=== PATIENT | male | born 1985 | race Caucasian/White ===

== ENCOUNTER 2018-07-23 04:53 | Emergency (ER) | payer OTHER ==
[2018-07-23] MEDS ORDERED: ALBUTEROL SO4 2.5/IPRATROPIUM 0.5 INH SOL 3 ML VIAL.NEB. NEB ONE ×2 (05:26→06:37)
[2018-07-23 05:31] VITALS: BP 130/77; TEMP 98.1; BMI 35.2
--- NOTE | 2018-07-23 05:33 | PDOC ---
Attending Attestation - Resident Resident Name: Carroll Grewal - ED Attending Attestation I have performed the following: I have examined & evaluated the patient, The case was reviewed & discussed with the resident, I agree w/resident's findings & plan - HPI HPI: 07/23/18 05:30 32-year-old male with shortness of breath on and off for 2 days, patient denies chest pain. Symptoms have been fluctuating in intensity. Patient does admit to smoking 1 pack of menthol cigarettes daily. - Physicial Exam PE: 07/23/18 05:33 Agree with resident's exam - Medical Decision Making 07/23/18 05:33 32-year-old male with shortness of breath and heavy tobacco use Labs, chest x-ray and EKG Duo nebs, with likely discharged home
--- NOTE | 2018-07-23 05:41 | PDOC ---
History of Present Illness - General Chief Complaint: Shortness of Breath Stated Complaint: SHORTNESS OF BREATH Time Seen by Provider: 07/23/18 04:59 History Source: Patient Exam Limitations: No Limitations - History of Present Illness Initial Comments: 07/23/18 05:41 32M with PMH of asthma who presents to the ER with complaints of SOB. The patient states that he woke up in the middle of the night feeling anxious and short of breath. He also admits to palpitations. He denies CP, lightheadedness, and syncope. He does not believe that this feels like an asthma attack. Pt denies hx of recent travel, hx of cancer, hx of DVT/PE, hx of recent surgery. Past History - Past Medical History Allergies/Adverse Reactions: Allergies Allergy/AdvReac Type Severity Reaction Status Date / Time No Known Allergies Allergy Verified 07/23/18 05:32 Home Medications: Ambulatory Orders NK [No Known Home Medication] 07/23/18 - Suicide/Smoking/Psychosocial Hx Smoking History: Current every day smoker Have you smoked in the past 12 months: Yes Information on smoking cessation initiated: No Hx Alcohol Use: Yes (Social) Drug/Substance Use Hx: No Review of Systems - Review of Systems Able to Perform ROS?: Yes Comments:: 07/23/18 05:46 GENERAL/CONSTITUTIONAL: No fever or chills. No weakness. HEAD, EYES, EARS, NOSE AND THROAT: No change in vision. No ear pain or discharge. No sore throat. CARDIOVASCULAR: + for palpitations. No chest pain, or lightheadedness. RESPIRATORY: + for SOB. No cough, wheezing, or hemoptysis. GASTROINTESTINAL: No nausea, vomiting, diarrhea, constipation, or abdominal pain. GENITOURINARY: No dysuria, frequency, hematuria, or change in urination. MUSCULOSKELETAL: No joint or muscle swelling or pain. No neck or back pain. SKIN: No rash or lesions. NEUROLOGIC: No headache, numbness, tingling, focal weakness, loss of consciousness, or change in strength/sensation. Is the patient limited Maltese proficient: No *Physical Exam - Vital Signs Last Vital Signs Temp Pulse Resp BP Pulse Ox 98.1 F 82 22 H 130/77 100 07/23/18 04:53 07/23/18 04:53 07/23/18 04:53 07/23/18 04:53 07/23/18 04:53 - Physical Exam Comments: 07/23/18 05:56 GENERAL: Well developed, well nourished. Awake and alert. No acute distress. HEENT: Normocephalic, atraumatic. Hearing grossly normal. Moist mucous membranes. PERRLA, EOMI. No conjunctival pallor. Sclera are non-icteric. NECK: Supple. Full ROM. No JVD. CARDIOVASCULAR: Regular rate and rhythm. No murmurs, rubs, or gallops. Distal pulses are 2+ and symmetric. PULMONARY: No evidence of respiratory distress. Mild expiratory wheezing in R LL. ABDOMINAL: Soft. Non-tender. Non-distended. No rebound or guarding. GENITOURINARY: No CVA tenderness bilaterally. MUSCULOSKELETAL: Normal range of motion at all joints. No bony deformities or tenderness. EXTREMITIES: No cyanosis. No clubbing. No edema. No calf tenderness or swelling. SKIN: Warm and dry. Normal capillary refill. No rashes. No jaundice. NEUROLOGICAL: Alert, awake, appropriate. Cranial nerves 2-12 grossly intact. Normal speech. Gait is normal without ataxia. PSYCHIATRIC: Cooperative but anxious appearing. Good eye contact. Appropriate mood and affect. Heart Score/ECG Review #1 ECG reviewed & interpreted by me at: 05:56 General ECG Interpretation: Sinus Rhythm, Normal Rate, Normal Intervals, No acute ischemic changes Compared to previous ECG there are: Previous ECG unavail ED Treatment Course - LABORATORY CBC & Chemistry Diagram: 07/23/18 05:35 07/23/18 05:35 - RADIOLOGY Radiology Studies Ordered: Category Date Time Status CHEST PA & LAT [RAD] Stat Radiology 07/23/18 05:17 Ordered Medical Decision Making - Medical Decision Making 07/23/18 05:59 32M with a PMH of asthma who presents with SOB and palpitations concerning for anxiety, asthma exacerbation. Low likelihood for PE. Pt PERCs out. 07/23/18 07:24 Pt signed out to Dr[address] Ibarra. *DC/Admit/Observation/Transfer Diagnosis at time of Disposition: Shortness of breath - Discharge Dispostion Disposition: HOME Condition at time of disposition: Good - Referrals - Patient Instructions Printed Discharge Instructions: DI for Shortness of Breath Additional Instructions: Please return to the ED if you have any new, worsening or concerning symptoms, especially increasing shortness of breath, chest pain, and fever. Please follow up with Dr Guadalupe this week. - Post Discharge Activity Forms/Work/School Notes: Back to Work
[2018-07-23 05:58] LABS: BASO % 0.9 % (0-2.0); EOS % 3.8 % (0-4.5); HEMATOCRIT 46.5 % (35.4-49); HEMOGLOBIN 15.9 GM/dL (11.7-16.9); LYMPH % 28.2 % (8-40); MCH 27.6 pg (25.7-33.7); MCHC 34.1 g/dl (32.0-35.9); MEAN CELL VOLUME 80.8 fl (80-96); MEAN PLT VOLUME 8.8 fl (7.5-11.1); MONO % 5.5 % (3.8-10.2); NEUT % 61.6 % (42.8-82.8); PLATELET COUNT 312 K/MM3 (134-434); RBC 5.75 M/mm3 (4.00-5.60); RDW 14.7 % (11.9-15.9); WHITE BLOOD COUNT 8.9 K/mm3 (4.0-10.0)
[2018-07-23 06:12] LABS: INR 0.96 (0.83-1.09); PROTHROMBIN TIME (PATIENT) 11.3 SEC (9.7-13.0)
[2018-07-23 06:55] VITALS: PULSE 87
[2018-07-23 06:55] LABS: ALBUMIN 3.9 g/dl (3.4-5.0); ALK PHOS 136 U/L (45-117); ANION GAP 3 MMOL/L (8-16); BILIRUBIN,TOTAL 0.4 mg/dL (0.2-1); BLOOD UREA NITROGEN 11 mg/dL (7-18); CALCIUM 8.3 mg/dL (8.5-10.1); CHLORIDE 108 mmol/L (98-107); CO2 28 mmol/L (21-32); CREATININE 1.1 mg/dL (0.55-1.3); GLUCOSE,RANDOM 103 mg/dL (74-106); POTASSIUM 4.2 mmol/L (3.5-5.1); SGOT/AST 44 U/L (15-37); SGPT/ALT 70 U/L (13-61); SODIUM 139 mmol/L (136-145); TOT PROT 7.5 g/dl (6.4-8.2)
--- NOTE | 2018-07-23 08:14 | PDOC ---
*Physical Exam - Vital Signs Last Vital Signs Temp Pulse Resp BP Pulse Ox 98.1 F 87 22 H 130/77 100 07/23/18 04:53 07/23/18 06:47 07/23/18 04:53 07/23/18 04:53 07/23/18 06:47 ED Treatment Course - LABORATORY CBC & Chemistry Diagram: 07/23/18 05:35 07/23/18 05:35 - ADDITIONAL ORDERS Additional order review: Laboratory Results 07/23/18 07/23/18 07/23/18 05:35 05:35 05:18 PT with INR 11.30 INR 0.96 D-Dimer < 215 Sodium 139 Potassium 4.2 Chloride 108 H Carbon Dioxide 28 Anion Gap 3 L BUN 11 Creatinine 1.1 Est GFR (CKD-EPI)AfAm 103.85 Est GFR (CKD-EPI)NonAf 89.61 Random Glucose 103 Calcium 8.3 L Total Bilirubin 0.4 AST 44 H ALT 70 H Alkaline Phosphatase 136 H Creatine Kinase 618 H Creatine Kinase Index 0.4 CK-MB (CK-2) 3.0 Troponin I < 0.02 Total Protein 7.5 Albumin 3.9 TSH 1.83 07/23/18 05:35 RBC 5.75 H MCV 80.8 MCHC 34.1 RDW 14.7 MPV 8.8 Neutrophils % 61.6 Lymphocytes % 28.2 Monocytes % 5.5 Eosinophils % 3.8 Basophils % 0.9 - Medications Given in the ED: ED Medications Discontinued Medications Generic Name Dose Route Start Last Admin Trade Name Freq PRN Reason Stop Dose Admin Albuterol/Ipratropium 2 amp 07/23/18 05:26 07/23/18 06:43 Duoneb - NEB 07/23/18 05:27 2 amp ONCE ONE Administration Medical Decision Making - Medical Decision Making 07/23/18 08:[address] Grewal. Patient is 32M here today with shortness of breath. Lungs were clear on initial exam. D-dimer negative. Trop normal. EKG reassuring. Pending CXR and likely discharge. CXR clear. Patient reassessed, symptoms have resolved, lungs clear. Has inhaler at home and Anayeli for PCP. Will discharge home with return precautions and instructions to follow up. *DC/Admit/Observation/Transfer Diagnosis at time of Disposition: Shortness of breath - Discharge Dispostion Disposition: HOME Condition at time of disposition: Good Decision to Admit order: No - Referrals - Patient Instructions Printed Discharge Instructions: DI for Shortness of Breath Additional Instructions: Please return to the ED if you have any new, worsening or concerning symptoms, especially increasing shortness of breath, chest pain, and fever. Please follow up with Dr Guadalupe this week. - Post Discharge Activity Forms/Work/School Notes: Back to Work
--- NOTE | 2018-07-23 17:15 | EKG ---
Test Reason : Blood Pressure : / mmHG Vent. Rate : 087 BPM Atrial Rate : 087 BPM P-R Int : 154 ms QRS Dur : 082 ms QT Int : 344 ms P-R-T Axes : 041 006 007 degrees QTc Int : 413 ms NORMAL SINUS RHYTHM INFERIOR INFARCT , AGE UNDETERMINED ABNORMAL ECG NO PREVIOUS ECGS AVAILABLE Confirmed by STACY CUELLAR, MONIQUE ([id number]) on 07/23/2018 5:14:49 PM Referred By: Juan ARMIJO Confirmed By:MONIQUE KUMAR MD
== END 2018-07-23 09:03 | disposition home or self-care (01) ==
LOC: JER 04:53
PROC: 3E0F7GC Introduction of Other Therapeutic Substance into Respiratory Tract, Via Natural or Artificial Opening (ICD-10-PCS; principal; 2018-07-23)
DX: R06.02 Shortness of breath (principal); F17.210 Nicotine dependence, cigarettes, uncomplicated
CPT/HCPCS: 36415; 71046-TC-FY; 80053; 82550; 82553; 84443; 84484; 85025; 85379; 85610; 93005; 93010; 99284-25

== ENCOUNTER 2018-09-21 22:40 | Emergency (ER) | payer OTHER ==
[2018-09-21 22:49] VITALS: BP 128/67; PULSE 87; TEMP 98.4; BMI 35.1
--- NOTE | 2018-09-22 00:32 | PDOC ---
History of Present Illness - General Chief Complaint: Shortness of Breath Stated Complaint: SOB/PALPITATIONS Time Seen by Provider: 09/22/18 00:32 - History of Present Illness Initial Comments: 09/22/18 01:15 The patient is a 32 year old male with a history of asthma who presents for evaluation of SOB and chest palpitations. The patient states that he has been experiencing a 2 day history of shortness of breath and associated chest palpitations and chest tightness that has been persistent prompting her presentation to the ED for further evaluation. He denies any exacerbating or relieving factors and otherwise denies fevers, chills, cough, nausea, vomiting, abdominal pain, or changes with urination or bowel movements. Past History - Past Medical History Allergies/Adverse Reactions: Allergies Allergy/AdvReac Type Severity Reaction Status Date / Time No Known Allergies Allergy Verified 07/23/18 05:32 Home Medications: Ambulatory Orders predniSONE [Deltasone -] 40 mg PO DAILY #10 tablet 09/22/18 Asthma: Yes COPD: No - Suicide/Smoking/Psychosocial Hx Smoking History: Unknown if ever smoked Have you smoked in the past 12 months: Yes Hx Alcohol Use: Yes (Social) Drug/Substance Use Hx: No Review of Systems - Review of Systems Comments:: 09/22/18 01:17 Constitutional: No fevers, chills, fatigue, malaise HEENT: No Rhinorrhea, nasal congestion, visual changes Cardiovascular: Palpitations. No chest pain, syncope, lightheadedness Respiratory: SOB. No Cough, Hemoptysis, Gastrointestinal: No Abdominal pain, Nausea, Vomiting, Constipation, Diarrhea, Melena Genitourinary: No Dysuria, Frequency, Urgency, Hesitancy, Hematuria, Flank pain Musculoskeletal: No Myalgia, arthralgia Skin: No rashes, itching, bruising, pallor Neurologic: No Headache, Dizziness, Numbness, Weakness, or Tingling Psychiatric: No Hallucinations. No SI or HI *Physical Exam - Vital Signs Last Vital Signs Temp Pulse Resp BP Pulse Ox 98.4 F 87 20 128/67 97 09/21/18 22:46 09/21/18 22:46 09/21/18 22:46 09/21/18 22:46 09/21/18 22:46 - Physical Exam Comments: 09/22/18 01:17 General Appearance: Nourished. No Apparent Distress HEENT: No Pharyngeal Erythema, Tonsillar Exudate, Tonsillar Erythema Neck: No Cervical Lymphadenopathy Respiratory/Chest: Lungs Clear, Normal Breath Sounds. End expiratory wheezing noted on exam. No Crackles, Rales, Rhonchi, Cardiovascular: Regular Rhythm, Regular Rate. No Murmur, Gallops, Rubs Gastrointestinal/Abdominal: Normal Bowel Sounds, Soft. No Guarding, Rebound, Tenderness Musculoskeletal: No CVA Tenderness Extremity: Normal Capillary Refill Integumentary: Normal Color, Dry, Warm Neurologic: Fully Oriented, Alert, Normal Mood/Affect, Normal Response, ED Treatment Course - LABORATORY CBC & Chemistry Diagram: 09/22/18 01:06 09/22/18 01:06 Medical Decision Making - Medical Decision Making 09/22/18 01:18 The patient is a 32 year old male with a history of asthma who presents for evaluation of SOB and chest palpitations. Differential includes but is not limited to: ACS, Asthma exacerbation, Arrhythmia, Infectious, Metabolic Derangement. Given the patient's history and physical exam, we will obtain a cbc, cmp, troponin, ekg, chest plain film, tsh to evaluate further. We will treat with duonebs, prednisone and continue to monitor and reassess while here in the ED. 09/22/18 06:06 CBC, cmp, troponin are unremarkable. Chest plain film is unremarkable. The patient was reassessed and reports improvement in their symptoms. We are comfortable discharging the patient home in stable condition on prednisone. Patient and family made aware of impression and plan, return precautions discussed including but not limited to worsening pain or symptoms, fevers, or signs of infection, chest pain, respiratory distress, inability to tolerate oral intake, dehydration, syncope, or neurologic changes. The patient is to follow up with PMD as recommended within 1 week, follow up information provided and the patient will call for an appointment. The patient is to take medications as instructed for duration of time and continue with supportive care , avoid triggers and precipitants. Patient is safe for outpatient follow-up. *DC/Admit/Observation/Transfer Diagnosis at time of Disposition: Shortness of breath - Discharge Dispostion Disposition: HOME Condition at time of disposition: Stable Decision to Admit order: No - Prescriptions Prescriptions: predniSONE [Deltasone -] 40 mg PO DAILY #10 tablet - Referrals Referrals: Anayeli,Ammir, MD [Primary Care Provider] - - Patient Instructions Printed Discharge Instructions: DI for Asthma -- Adult Additional Instructions: 1) Please follow-up with your primary care doctor in the next 2-3 days. Please call tomorrow to schedule a follow up appointment. If you cannot follow up with your doctor within 1 week please return to the Emergency Department for any urgent issues. 2) Your laboratory / imaging results were normal here in the ER. 3) If you have any worsening of symptoms or any other concerns please return to the ER immediately. Return if worsening symptoms including fevers, headache, vomiting, visual or hearing disturbances, abdominal pain, chest pain, shortness of breath, syncope, dehydration, inability to take things by mouth/vomiting, altered mental status, or worsening concerning symptoms. 4) Please continue taking your home medications as directed. Your medications on discharge include Prednisone. Side effects may include upset stomach, abdominal pain, vomiting, or diarrhea. Do not drink alcohol with your medications. - Post Discharge Activity Forms/Work/School Notes: Back to Work
--- NOTE | 2018-09-22 00:41 | PDOC ---
Attending Attestation - Resident Resident Name: Devonte Correa - ED Attending Attestation I have performed the following: I have examined & evaluated the patient, The case was reviewed & discussed with the resident, I agree w/resident's findings & plan - HPI HPI: 09/22/18 01:29 32-year-old male with chest tightness and palpitations. Patient has a history of asthma and has been using his nebulizer without relief. - Physicial Exam PE: 09/22/18 01:29 GENERAL: Awake, in no acute distress HEAD: No signs of trauma EYES: ENT:clear without exudates. Moist mucosa NECK: Normal ROM, LUNGS:. Normal work of breathing. end expiratory wheezing HEART: Regular rate and rhythm, ABDOMEN: Soft, nondistended CHEST WALL: BACK: No midline tenderness. EXTREMITIES:. No erythema, or tenderness NEUROLOGICAL: Alert, SKIN: Warm, Dry - Medical Decision Making 09/22/18 01:31 32-year-old male with asthma complaining of shortness of breath and palpitations Patient exhibits end expiratory wheezing on exam Plan for labs, EKG, chest x-ray as well as IV steroids and DuoNeb's Patient will likely be discharged home with a short course of oral steroids and recommended follow-up with his primary care physician He does have a nebulizer machine at home
[2018-09-22] MEDS ORDERED: predniSONE 20 MG TABLET (UD) PO ONE (01:10)
[2018-09-22] MEDS ORDERED: ALBUTEROL SO4 2.5/IPRATROPIUM 0.5 INH SOL 3 ML VIAL.NEB. NEB ONE ×2 (01:10→02:16)
[2018-09-22] MEDS ORDERED: methylPREDNISolone NA SUCC 125 MG/2 ML VIAL IVPUSH ONE (01:32)
[2018-09-22 01:57] LABS: ALBUMIN 4.1 g/dl (3.4-5.0); ALK PHOS 139 U/L (45-117); ANION GAP 5 MMOL/L (8-16); BILIRUBIN,TOTAL 0.4 mg/dL (0.2-1); BLOOD UREA NITROGEN 11.5 mg/dL (7-18); CALCIUM 9.3 mg/dL (8.5-10.1); CHLORIDE 108 mmol/L (98-107); CO2 28 mmol/L (21-32); CREATININE 1.2 mg/dL (0.55-1.3); GLUCOSE,RANDOM 81 mg/dL (74-106); POTASSIUM 4.5 mmol/L (3.5-5.1); SGOT/AST 27 U/L (15-37); SGPT/ALT 60 U/L (13-61); SODIUM 140 mmol/L (136-145); TOT PROT 7.7 g/dl (6.4-8.2)
[2018-09-22] MEDS ORDERED: methylPREDNISolone NA SUCC 125 MG/2 ML VIAL ONE (02:16)
[2018-09-22 02:22] LABS: BASO % 1.2 % (0-2.0); EOS % 3.2 % (0-4.5); HEMATOCRIT 43.9 % (35.4-49); HEMOGLOBIN 15.5 GM/dL (11.7-16.9); LYMPH % 28.2 % (8-40); MCH 28.4 pg (25.7-33.7); MCHC 35.3 g/dl (32.0-35.9); MEAN CELL VOLUME 80.4 fl (80-96); MEAN PLT VOLUME 8.7 fl (7.5-11.1); MONO % 5.3 % (3.8-10.2); NEUT % 62.1 % (42.8-82.8); PLATELET COUNT 330 K/MM3 (134-434); RBC 5.46 M/mm3 (4.00-5.60); RDW 14.6 % (11.9-15.9); WHITE BLOOD COUNT 10.8 K/mm3 (4.0-10.0)
--- NOTE | 2018-09-22 12:06 | EKG ---
Test Reason : Blood Pressure : / mmHG Vent. Rate : 081 BPM Atrial Rate : 081 BPM P-R Int : 144 ms QRS Dur : 080 ms QT Int : 356 ms P-R-T Axes : 042 033 026 degrees QTc Int : 413 ms NORMAL SINUS RHYTHM NORMAL ECG WHEN COMPARED WITH ECG OF 23-JUL-2018 05:09, CRITERIA FOR INFERIOR INFARCT ARE NO LONGER PRESENT Confirmed by Nhan Landry ([id number]) on 09/22/2018 12:06:01 PM Referred By: Confirmed By:Nhan Landry
== END 2018-09-22 03:07 | disposition home or self-care (01) ==
LOC: JER 22:40
PROC: 3E0F7GC Introduction of Other Therapeutic Substance into Respiratory Tract, Via Natural or Artificial Opening (ICD-10-PCS; principal; 2018-09-21)
PROC: 3E0333Z Introduction of Anti-inflammatory into Peripheral Vein, Percutaneous Approach (ICD-10-PCS; 2018-09-21)
DX: J45.909 Unspecified asthma, uncomplicated (principal); R06.02 Shortness of breath
CPT/HCPCS: 36415; 71045-TC-FY; 80053; 82550; 82553; 84443; 84484; 85025; 93005; 93010; 99281-25

== ENCOUNTER 2019-03-12 18:20 | Emergency (ER) | payer OTHER ==
[2019-03-12 18:26] VITALS: BP 131/86; TEMP 98; BMI 35.4
--- NOTE | 2019-03-12 19:50 | PDOC ---
History of Present Illness - General Chief Complaint: Allergic Reaction Stated Complaint: ALLERGY REACTION - History of Present Illness Initial Comments: 03/12/19 20:06 33 year old man with a history of several allergies to food, seafood, plants, pollen who presents after an allergic reaction to contrast at 11AM. The patient was getting a CT AP for a hernia and developed rash on the face and shoulders, tightness in the throat and 1 episode of vomiting. The patient went home and took an "anti-allergy" pill. The patient has been able to eat and drink since then but reports persistent feelings of tightness in the throat and rash on the face. ROS GENERAL/CONSTITUTIONAL: No fever or chills. No weakness. HEAD, EYES, EARS, NOSE AND THROAT: No change in vision. No ear pain or discharge. CARDIOVASCULAR: No chest pain, + shortness of breath RESPIRATORY: No cough, wheezing, or hemoptysis. GASTROINTESTINAL: No nausea, + vomiting, No diarrhea or constipation. GENITOURINARY: No dysuria, frequency, or change in urination. MUSCULOSKELETAL: No joint or muscle swelling or pain. No neck or back pain. SKIN: + rash NEUROLOGIC: No headache, vertigo, loss of consciousness, or change in strength/ sensation. PE GENERAL: Awake, alert, and fully oriented, in no acute distress HEAD: No signs of trauma, normocephalic, atraumatic EYES: EOMI, sclera anicteric, conjunctiva clear ENT: oropharynx clear without exudates. Moist mucosa, no uvular swelling or deviation NECK: Normal ROM, supple LUNGS: No distress, speaks full sentences, clear to auscultation bilaterally HEART: Regular rate and rhythm, normal S1 and S2, no murmurs, rubs or gallops, peripheral pulses normal and equal bilaterally. ABDOMEN: Soft, nontender No guarding, no rebound. No masses EXTREMITIES : Normal inspection, Normal range of motion, no edema. No clubbing or cyanosis. NEUROLOGICAL: Cranial nerves II through XII grossly intact. Normal speech, normal gait, no focal sensorimotor deficits SKIN: + erythema to the face and upper shoulders MDM DDX including but not limited to: allergic reaction ED Course: Patient with an allergic reaction to contrast dye at 11am. With no significant signs of airway edema on exam will dose benadryl, pepcid, prednisone and send home with medrol dose feroz, epi pen and pilot teacher evens/u Torie Beavers, PGY2 Emergency Medicine Past History - Past Medical History Allergies/Adverse Reactions: Allergies Allergy/AdvReac Type Severity Reaction Status Date / Time Iodinated Contrast Media Allergy Verified 03/12/19 18:28 Home Medications: Ambulatory Orders predniSONE [Deltasone -] 40 mg PO DAILY #10 tablet 09/22/18 EPINEPHrine (EPI-PEN 0.3MG) [Epipen 0.3MG -] 0.3 mg IM ASDIR #2 pens 03/12/19 Methylprednisolone [Medrol Dose Feroz] 4 mg PO ASDIR #21 tablet 03/12/19 Asthma: Yes COPD: No - Psycho Social/Smoking Cessation Hx Smoking History: Current every day smoker Have you smoked in the past 12 months: Yes Number of Cigarettes Smoked Daily: 10 Information on smoking cessation initiated: No Hx Alcohol Use: Yes (Social) Drug/Substance Use Hx: No *Physical Exam - Vital Signs Last Vital Signs Temp Pulse Resp BP Pulse Ox 98 F 101 H 18 131/86 97 03/12/19 18:22 03/12/19 18:22 03/12/19 18:22 03/12/19 18:22 03/12/19 18:22 Discharge - Discharge Information Problems reviewed: Yes Clinical Impression/Diagnosis: Allergic reaction Condition: Stable Disposition: HOME - Admission No - Additional Discharge Information Prescriptions: EPINEPHrine (EPI-PEN 0.3MG) [Epipen 0.3MG -] 0.3 mg IM ASDIR #2 pens Methylprednisolone [Medrol Dose Feroz] 4 mg PO ASDIR #21 tablet - Follow up/Referral Referrals: Katerin Guadalupe MD [Primary Care Provider] - Alix Reynoso [Non Staff, Medical] - - Patient Discharge Instructions Patient Printed Discharge Instructions: DI for Adverse Drug Reaction -- Allergic Additional Instructions: You were seen in the ER for complaints of rash and tightness in the chest You were treated symptomatically You have a prescription for a steroid Medrol feroz which should be taken as prescribed and an Epi-pen to be used when you feel like your throat is closing or you have difficulty breathing or you are having a severe allergic reaction You have a referral to an pilot teacher and should follow up within 1 week Return to ER if you develop worsening tightness in the throat, difficulty breathing, worsening rash or any other concerning symptoms. How To Use EpiPen Place the orange tip against the middle of the outer thigh. Swing and push the auto-injector firmly into the thigh until it clicks Hold firmly in place for 3 seconds count slowly, 1, 2, 3 Usted fue visto en la daina de emergencias por quejas de sarpullido y opresin en el pecho Usted fue tratado sintomticamente Tiene verena receta para un esteroide Medrol feroz que debe tomarse segn lo prescrito y un Epi-pen para usar cuando sienta que carrera garganta se est cerrando o tenga dificultad para respirar o tenga verena reaccin alrgica severa Tiene verena referencia a un alerglogo y debe realizar un seguimiento dentro de 1 semana Regrese a la daina de emergencias si desarrolla un empeoramiento de la garganta, dificultad para respirar, empeoramiento de la erupcin o cualquier otro sntoma relacionado. Mail Truck Driver usar EpiPen Coloque la punta naranja contra la mitad del muslo externo. Balancee y presione el autoinyector firmemente en el muslo hasta que monika "clic " Sujtelo firmemente en carrera lugar gucci 3 segundos: cuente lentamente, "1, 2, 3" - Post Discharge Activity
[2019-03-12] MEDS ORDERED: diphenhydrAMINE HCL 25 MG CAPSULE (FP) PO ONE ×2 (20:05→20:09)
[2019-03-12] MEDS ORDERED: predniSONE 20 MG TABLET (UD) PO ONE (20:06)
[2019-03-12] MEDS ORDERED: FAMOTIDINE 20 MG TABLET PO ONE (20:06)
[2019-03-12] MEDS ORDERED: predniSONE 20 MG TABLET (UD) ONE (20:09)
[2019-03-12 20:54] LABS: BASO % 1.5 % (0-2.0); EOS % 3.8 % (0-4.5); HEMATOCRIT 45.3 % (35.4-49); HEMOGLOBIN 15.6 GM/dL (11.7-16.9); LYMPH % 30.1 % (8-40); MCH 28.4 pg (25.7-33.7); MCHC 34.5 g/dl (32.0-35.9); MEAN CELL VOLUME 82.3 fl (80-96); MEAN PLT VOLUME 8.4 fl (7.5-11.1); MONO % 5.3 % (3.8-10.2); NEUT % 59.3 % (42.8-82.8); PLATELET COUNT 322 K/MM3 (134-434); RBC 5.51 M/mm3 (4.00-5.60); RDW 14.6 % (11.9-15.9); WHITE BLOOD COUNT 10.8 K/mm3 (4.0-10.0)
[2019-03-12 21:22] LABS: ALBUMIN 3.8 g/dl (3.4-5.0); BILIRUBIN,TOTAL 0.3 mg/dL (0.2-1); BLOOD UREA NITROGEN 11.6 mg/dL (7-18); CALCIUM 8.7 mg/dL (8.5-10.1); POTASSIUM 4.2 mmol/L (3.5-5.1); TOT PROT 7.4 g/dl (6.4-8.2)
[2019-03-12 21:42] VITALS: PULSE 87
--- NOTE | 2019-03-13 00:57 | PDOC ---
Documentation entered by Melissa Cochran SCRIBE, acting as scribe for Arelis Huff MD. Arelis Huff MD: This documentation has been prepared by the Sammie thomson Adrianna, SCRIBE, under my direction and personally reviewed by me in its entirety. I confirm that the documentation accurately reflects all work, treatment, procedures, and medical decision making performed by me. Attending Attestation - Resident Resident Name: Torie Beavers - ED Attending Attestation I have performed the following: I have examined & evaluated the patient, The case was reviewed & discussed with the resident, I agree w/resident's findings & plan, Exceptions are as noted - HPI HPI: The patient is a 33 year old male, with a significant PMH of allergies to various foods, seafoods, plants, and pollen, who presents to the ED for evaluation of allergic reaction that began earlier this morning. Patient was getting an abdomen and pelvis CT for a hernia, where he was given contrast. Subsequently, he developed a rash to the face and shoulders, as well as tightness in the throat. He reports one episode of nausea and NBNB vomit. He went home and took an antihistamine, was able to eat and drink but notes the tightness in his throat remains as well as the rash on the face. - Physicial Exam PE: 03/12/19 20:54 GENERAL: The patient is in no acute distress. HEENT: Ears normal, nares patent, oropharynx clear without exudates. Moist mucous membranes. No oral lesions, no skin sloughing no uvula edema, no tongue swelling NECK: Normal range of motion, supple LUNGS: Breath sounds equal, clear to auscultation bilaterally. No wheezing HEART:Regular rate and rhythm, normal S1 and S2 without murmur, rub or gallop. ABDOMEN: Soft, nontender, normoactive bowel sounds. EXTREMITIES: Normal range of motion, no edema. NEUROLOGICAL: Cranial nerves II through XII grossly intact. Normal speech. No focal neurological deficits. SKIN: Facial swelling, peticheal rash noted on face, neck, NO uricaria. - Medical Decision Making 03/12/19 20:56 33 yo M s/p CT with contrast at 11 am presents to the ER with a complaint of reaction to contrast The patient has not had contrast before Pt has a globus sensation in his throat No wheezing No shortness of breath DD Allergic reaction Rash appears to be petichiae Pt asked to follow up with PMD Pt given copies of all labs Pt started on steroids, H1 and H2 blockers Return to the ER for any other concerns or complaints Laboratory Tests 03/12/19 03/12/19 20:40 20:40 Hgb 15.6 Hct 45.3 BUN 11.6 Creatinine 1.0 AST 39 H ALT 83 H
== END 2019-03-12 21:41 | disposition home or self-care (01) ==
LOC: JER 18:20
DX: T78.49XA Other allergy, initial encounter (principal); T50.8X5A Adverse effect of diagnostic agents, initial encounter; Z91.041 Radiographic dye allergy status; Y92.238 Other place in hospital as the place of occurrence of the external cause; Z91.018 Allergy to other foods; Z91.013 Allergy to seafood
CPT/HCPCS: 36415; 80053; 85025; 99282-25

== ENCOUNTER 2019-04-24 02:30 | Inpatient (IN) | payer OTHER ==
[2019-04-24 03:01] VITALS: TEMP 98.6; BMI 35.4
--- NOTE | 2019-04-24 03:10 | PDOC ---
Attending Attestation - Resident Resident Name: IndyMisha - ED Attending Attestation I have performed the following: I have examined & evaluated the patient, The case was reviewed & discussed with the resident, I agree w/resident's findings & plan - HPI HPI: 04/24/19 06:10 Pt comes with sob and palpitaitons. 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 Pt has no PMHx. - Physicial Exam PE: 04/24/19 06:32 Overweight and tachycardic. Pt has normal heart and clear lungs HEENT Mayra; abd soft NT ND flank no pain ext no C/C/E neuro no deficits. - Medical Decision Making 04/24/19 06:33 We cannot get CTA, as pt is allergic to contrast dye. He will be admitted to the hospital with a CXR Pt is refusing to stay; he called his mom and she wants him to stay. Pt will AMA I gave him a dose of lovenox; explained that it is good for 24hrs and that he ought to return. We are concerned about DVT/PE Heart Score/ECG Review - History History: Moderately suspicious - Electrocardiogram EKG: Non specific repolarization disturbance - Age Age: </= 45 - Risk Factors Risk Factors Heart Score: Yes Smoking History, Yes Hx Obesity Based on the list above the patient has:: 1-2 risk factors - Troponin Troponin: </= normal limit - Score Heart Score - Total: 3 - ECG Intrepretation Rhythm: Regular Rhythm - [place]: Normal - P and [place] Delta Wave(s) Present: No WPW: No Comment:: 04/24/19 06:32 pt has an S1Q3T3
--- NOTE | 2019-04-24 03:10 | PDOC ---
History of Present Illness - General Chief Complaint: Tachycardia Stated Complaint: RAPID HEARTBEAT Time Seen by Provider: 04/24/19 03:09 History Source: Patient Exam Limitations: No Limitations - History of Present Illness Initial Comments: 04/24/19 03:18 33yM w PMHx HLD, obesity, asthma, current smoker presenting w sudden onset heart palpitations and SOB which woke him up at midnight. Did not take any meds. Has positive fam hx of [place]. Last year presented to ED with similar symptoms , negative workup. Denies fever, cough, chest pain, nausea/vomiting. Denies recent travel, leg swelling. Past History - Past Medical History Allergies/Adverse Reactions: Allergies Allergy/AdvReac Type Severity Reaction Status Date / Time Iodinated Contrast Media Allergy Verified 04/24/19 02:58 Home Medications: Ambulatory Orders EPINEPHrine (EPI-PEN 0.3MG) [Epipen 0.3MG -] 0.3 mg IM ASDIR #2 pens 03/12/19 Ipratropium/Albuterol Sulfate [Iprat-Albut 0.5-3(2.5) mg/3 ml] 2 puff PO PRN 11/03 Asthma: Yes COPD: No - Psycho Social/Smoking Cessation Hx Smoking History: Current every day smoker Have you smoked in the past 12 months: Yes Number of Cigarettes Smoked Daily: 10 Information on smoking cessation initiated: No Hx Alcohol Use: No Drug/Substance Use Hx: No Review of Systems - Review of Systems Constitutional: No: Chills, Fever HEENTM: No: Eye Pain, Nose Pain Respiratory: Yes: Shortness of Breath. No: Cough Cardiac (ROS): Yes: Palpitations. No: Chest Pain, Syncope ABD/GI: No: Abdominal Distended, Constipated, Diarrhea, Nausea, Vomiting : No: Burning, Dysuria Musculoskeletal: No: Back Pain, Joint Pain Integumentary: No: Bruising, Flushing Neurological: No: Headache Psychiatric: No: Anxiety, Depression Endocrine: No: Excessive Sweating, Intolerance to Cold, Intolerance to Heat Hematologic/Lymphatic: No: Anemia, Blood Clots *Physical Exam - Vital Signs Last Vital Signs Temp Pulse Resp BP Pulse Ox 98.6 F 121 H 22 H 138/85 95 04/24/19 02:41 04/24/19 02:41 04/24/19 02:41 04/24/19 02:41 04/24/19 02:41 - Physical Exam General Appearance: Yes: Nourished, Appropriately Dressed, Mild Distress HEENT: positive: EOMI, ISABELLA, Normal Voice, Hearing Grossly Normal. negative: Scleral Icterus (R), Scleral Icterus (L) Respiratory/Chest: positive: Lungs Clear, Normal Breath Sounds, Rapid RR. negative: Chest Tender, Respiratory Distress, Decreased Breath Sounds, Crackles , Rales, Rhonchi, Stridor, Wheezing Cardiovascular: positive: Regular Rhythm, S1, S2, Tachycardia. negative: Edema , Murmur Extremity: positive: Normal Capillary Refill Integumentary: positive: Normal Color. negative: Dry Neurologic: positive: senior integration developer II-XII NML intact, Fully Oriented, Alert, Normal Response, Responsive. negative: Confused, Disoriented ED Treatment Course - LABORATORY CBC & Chemistry Diagram: 04/24/19 03:24 04/24/19 03:24 Medical Decision Making - Medical Decision Making 04/24/19 03:20 EKG sinus tachycardia, HR 109, QTc 430, S1Q3T3, new lead III changes vs 09/22/18 RUI Cr 1.4 from 1.0, elevated d-dimer 613 --- 33yM w PMHx HLD, obesity, asthma, current smoker presenting w sudden onset heart palpitations and SOB PE (elevated d-dimer, S1Q3T3) vs anxiety. Low concern for ACS (neg trop) vs asthma (no wheezing) vs hyperthyroidism (normal TSH). Has RUI Cr 1.4 from 1.0 Given 1L NS Pt reports throat swelling for contrast. Chest CTA not done Admitted tele Dr Snider for palpitations requiring PE rule out w V/Q scan, RUI -pending UA PCP Dr Katerin Guadalupe Discharge - Discharge Information Problems reviewed: Yes Clinical Impression/Diagnosis: Palpitations, RUI (acute kidney injury) - Follow up/Referral Referrals: Katerin Guadalupe MD [Primary Care Provider] - - Patient Discharge Instructions - Post Discharge Activity
[2019-04-24 03:47] LABS: BASO % 1.3 % (0-2.0); EOS % 3.4 % (0-4.5); HEMATOCRIT 45.5 % (35.4-49); LYMPH % 26.8 % (8-40); MCH 28.8 pg (25.7-33.7); MCHC 35.2 g/dl (32.0-35.9); MEAN CELL VOLUME 81.6 fl (80-96); MEAN PLT VOLUME 8.7 fl (7.5-11.1); MONO % 5.8 % (3.8-10.2); NEUT % 62.7 % (42.8-82.8); PLATELET COUNT 342 K/MM3 (134-434); RBC 5.58 M/mm3 (4.00-5.60); RDW 14.4 % (11.9-15.9); WHITE BLOOD COUNT 11.8 K/mm3 (4.0-10.0)
[2019-04-24 04:19] LABS: ANION GAP 8 MMOL/L (8-16); BLOOD UREA NITROGEN 15.3 mg/dL (7-18); CALCIUM 9.2 mg/dL (8.5-10.1); CHLORIDE 105 mmol/L (98-107); CO2 26 mmol/L (21-32); CREATININE 1.4 mg/dL (0.55-1.3); GLUCOSE,RANDOM 128 mg/dL (74-106); POTASSIUM 3.9 mmol/L (3.5-5.1); SODIUM 139 mmol/L (136-145)
[2019-04-24] MEDS ORDERED: SODIUM CHLORIDE 0.9% 500 ML INFUS.BAG IV ONE (04:21)
[2019-04-24] MEDS ORDERED: ENOXAPARIN NA (PORCINE) 30 MG/0.3 ML DISP.SYRIN SQ ONE (06:15)
[2019-04-24] MEDS ORDERED: ENOXAPARIN NA (PORCINE) 120 MG/0.8 ML DISP.SYRIN SQ SCH (06:15)
[2019-04-24] MEDS ORDERED: ENOXAPARIN NA (PORCINE) 80 MG/0.8 ML DISP.SYRIN SQ ONE (06:15)
[2019-04-24 06:36] VITALS: BP 135/85; PULSE 110
--- NOTE | 2019-04-25 14:16 | EKG ---
Test Reason : Blood Pressure : / mmHG Vent. Rate : 109 BPM Atrial Rate : 109 BPM P-R Int : 154 ms QRS Dur : 084 ms QT Int : 320 ms P-R-T Axes : 073 045 034 degrees QTc Int : 430 ms SINUS TACHYCARDIA OTHERWISE NORMAL ECG Confirmed by MD DANIEL, NICKO ([id number]) on 04/25/2019 2:16:29 PM Referred By: Confirmed By:NICKO SANCHEZ MD
== END 2019-04-24 06:55 | disposition left against medical advice (07) | DRG 309 ==
LOC: JER 02:30 → JERBED 05:04
PROVIDERS: ADMIT Internal Medicine; ATTEND Internal Medicine
DX: R00.2 Palpitations (principal); R06.02 Shortness of breath; N17.9 Acute kidney failure, unspecified; R00.0 Tachycardia, unspecified; E66.9 Obesity, unspecified; Z68.35 Body mass index [BMI] 35.0-35.9, adult; F17.210 Nicotine dependence, cigarettes, uncomplicated; Z88.8 Allergy status to other drugs, medicaments and biological substances; J45.909 Unspecified asthma, uncomplicated; Z53.29 Procedure and treatment not carried out because of patient's decision for other reasons
CPT/HCPCS: 36415; 80048; 82550; 82553; 84443; 84484; 85025; 85379; 93005; 93010; 99283-25

== ENCOUNTER 2020-07-17 08:00 | Inpatient (IN) | payer OTHER ==
[2020-07-20 15:13] VITALS: BMI 39.1
[2020-07-24] MEDS ORDERED: BUDESONIDE/FORMETEROL FUMARATE 160/4.5 mcg INHALER IH PRN (10:48)
[2020-07-24] MEDS ORDERED: BUPIVACAINE HCL/PF 0.25% (2.5MG/ML) 10 ML VIAL ONE (10:57)
[2020-07-24] MEDS ORDERED: ALBUTEROL SO4 2.5/IPRATROPIUM 0.5 INH SOL 3 ML VIAL.NEB. NEB SCH (11:00)
[2020-07-24] MEDS ORDERED: BUPIVACAINE LIPOSOME/PF (EXPAREL) 266 MG/20 ML VIAL ONE (11:01)
[2020-07-24] MEDS ORDERED: MIDAZOLAM HCL 2 MG/2 ML SINGLE DOSE VIAL ONE ×3 (11:01→11:46)
[2020-07-24] MEDS ORDERED: BUPIVACAINE HCL/PF 0.5% (5 MG/ML) 30 ML VIAL IJ ONE (11:01)
[2020-07-24] MEDS ORDERED: DESFLURANE GAS 240 ML BOTTLE IH ONE (11:29)
[2020-07-24] MEDS ORDERED: SEVOFLURANE 250 ML BTL ONE (11:29)
[2020-07-24] MEDS ORDERED: ACETAMINOPHEN INJECTION 100 ML IVPB ONE (11:29)
[2020-07-24] MEDS ORDERED: GLYCOPYRROLATE 0.2 MG/1 ML VIAL ONE (11:44)
[2020-07-24] MEDS ORDERED: NEOSTIGMINE METHYLSULFATE 0.5 MG/1 ML - 10 ML MDV ONE (11:44)
[2020-07-24] MEDS ORDERED: SUCCINYLCHOLINE CHLORIDE 200 MG/10 ML SYRINGE ONE (11:44)
[2020-07-24] MEDS ORDERED: PROPOFOL 20 ML ONE ×3 (11:44)
[2020-07-24] MEDS ORDERED: ePHEDrine SULFATE 50 MG/1 ML AMPULE ONE ×2 (11:45)
[2020-07-24] MEDS ORDERED: PHENYLEPHRINE HCL 10 MG/1 ML SINGLE DOSE VIAL ONE (11:45)
[2020-07-24] MEDS ORDERED: fentaNYL CITRATE 250 MCG/5 ML VIAL ONE (11:46)
[2020-07-24] MEDS ORDERED: DEXAMETHASONE SOD PHOSPHATE 4 MG/1 ML VIAL ONE (11:51)
[2020-07-24] MEDS ORDERED: ONDANSETRON 4 MG/2 ML VIAL ONE (11:51)
[2020-07-24] MEDS ORDERED: ceFAZolin SODIUM 1 GM VIAL ONE (11:59)
[2020-07-24] MEDS ORDERED: ESMOLOL HCL 100,000 MCG/10 ML VIAL ONE (12:37)
[2020-07-24] MEDS ORDERED: ONDANSETRON 4 MG/2 ML VIAL IVPUSH PRN (13:12)
[2020-07-24] MEDS ORDERED: BUPIVACAINE HCL/PF 0.25% (2.5MG/ML) 10 ML VIAL IJ ONE ×2 (13:13)
[2020-07-24] MEDS ORDERED: HYDROmorphone HCL/PF 1 MG/ML VIAL IVPB PRN ×2 (13:13→13:22)
[2020-07-24] MEDS ORDERED: ACETAMINOPHEN 1000 MG/100 ML VIAL (NON FORMULARY) IVPB SCH (13:15)
[2020-07-24] MEDS ORDERED: LACTATED RINGERS SOLUTION 1,000 ML IV SCH (13:15)
[2020-07-24] MEDS ORDERED: FAMOTIDINE 20 MG/50 ML IVPB 20 MG/50 ML MG IVPB ONE (13:25)
[2020-07-24] MEDS ORDERED: METOCLOPRAMIDE HCL INJECTION 10 MG/2 ML VIAL ONE (13:25)
[2020-07-24] MEDS ORDERED: SODIUM CHLORIDE 1,000 ML IV SCH (13:30)
[2020-07-24] MEDS ORDERED: ALBUTEROL SO4 2.5/IPRATROPIUM 0.5 INH SOL 3 ML VIAL.NEB. NEB ONE (13:45)
[2020-07-24 14:04] LABS: HEMATOCRIT 46.3 % (35.4-49); HEMOGLOBIN 15.5 GM/dl (11.7-16.9); MCH 28.7 pg (25.7-33.7); MCHC 33.5 g/dl (32.0-35.9); MEAN CELL VOLUME 85.7 fl (80-96); MEAN PLT VOLUME 8.6 fl (7.5-11.1); PLATELET COUNT 350 K/MM3 (134-434); RDW 13.4 % (11.9-15.9)
[2020-07-24] MEDS ORDERED: FAMOTIDINE 20 MG PREMIXED IVPB IVPB ONE (14:05)
[2020-07-24 14:11] LABS: ALBUMIN 4.3 g/dl (3.4-5.0); BILIRUBIN,TOTAL 0.8 mg/dl (0.2-1); CREATININE 1.3 mg/dl (0.55-1.3); TOT PROT 7.6 g/dl (6.4-8.2)
[2020-07-24] MEDS ORDERED: ALBUTEROL SO4 2.5/IPRATROPIUM 0.5 INH SOL 3 ML VIAL.NEB. NEB PRN (14:41)
[2020-07-24] MEDS: HYDROmorphone HCL/PF 1 MG/ML VIAL IVPB PRN ×2 (16:13→20:11)
[2020-07-24] MEDS: ONDANSETRON 4 MG/2 ML VIAL IVPUSH SCH ×2 (18:00→21:30)
[2020-07-24] MEDS: ACETAMINOPHEN 1000 MG/100 ML VIAL (NON FORMULARY) IVPB SCH ×2 (18:01→23:02)
[2020-07-24] MEDS: METOCLOPRAMIDE HCL INJECTION 10 MG/2 ML VIAL IVPUSH SCH (20:11)
[2020-07-24] MEDS: ENOXAPARIN NA (PORCINE) 40 MG/0.4 ML DISP.SYRIN SQ SCH (21:29)
[2020-07-24] MEDS: FAMOTIDINE 20 MG/50 ML IVPB 20 MG/50 ML MG IVPB SCH (21:30)
[2020-07-25] MEDS: HYDROmorphone HCL/PF 1 MG/ML VIAL IVPB PRN ×5 (00:03→19:51)
[2020-07-25] MEDS: ONDANSETRON 4 MG/2 ML VIAL IVPUSH SCH ×6 (01:05→21:11)
[2020-07-25] MEDS: METOCLOPRAMIDE HCL INJECTION 10 MG/2 ML VIAL IVPUSH SCH ×4 (01:05→19:51)
[2020-07-25] MEDS: ACETAMINOPHEN 1000 MG/100 ML VIAL (NON FORMULARY) IVPB SCH ×2 (05:57→11:28)
[2020-07-25 07:55] LABS: HEMATOCRIT 44.5 % (35.4-49); MCH 28.4 pg (25.7-33.7); MCHC 33.8 g/dl (32.0-35.9); MEAN CELL VOLUME 84.1 fl (80-96); MEAN PLT VOLUME 8.6 fl (7.5-11.1); PLATELET COUNT 336 K/MM3 (134-434); RBC 5.28 M/mm3 (4.00-5.60); RDW 13.1 % (11.9-15.9); WHITE BLOOD COUNT 16.5 K/mm3 (4.0-10.8)
[2020-07-25 08:04] LABS: ALBUMIN 4.2 g/dl (3.4-5.0); BILIRUBIN,TOTAL 0.8 mg/dl (0.2-1); CREATININE 1.1 mg/dl (0.55-1.3); TOT PROT 7.7 g/dl (6.4-8.2)
[2020-07-25] MEDS: ENOXAPARIN NA (PORCINE) 40 MG/0.4 ML DISP.SYRIN SQ SCH ×2 (09:20→21:11)
[2020-07-25] MEDS: FAMOTIDINE 20 MG/50 ML IVPB 20 MG/50 ML MG IVPB SCH ×2 (09:20→21:11)
[2020-07-25 13:11] LABS: HEMOGLOBIN 15.1 GM/dl (11.7-16.9)
[2020-07-25 13:13] LABS: HEMATOCRIT 44.8 % (35.4-49); MCH 28.3 pg (25.7-33.7); MCHC 33.7 g/dl (32.0-35.9); MEAN PLT VOLUME 8.4 fl (7.5-11.1); PLATELET COUNT 314 K/MM3 (134-434); RBC 5.34 M/mm3 (4.00-5.60); RDW 13.4 % (11.9-15.9); WHITE BLOOD COUNT 17.8 K/mm3 (4.0-10.8)
[2020-07-25 14:00] LABS: PLATELET ESTIMATE ADEQUATE
[2020-07-25] MEDS ORDERED: SODIUM CHLORIDE 1,000 ML IV SCH (15:00)
[2020-07-25 17:40] LABS: HEMATOCRIT 44.5 % (35.4-49); HEMOGLOBIN 15.1 GM/dl (11.7-16.9); MCH 28.5 pg (25.7-33.7); MEAN CELL VOLUME 83.9 fl (80-96); MEAN PLT VOLUME 8.1 fl (7.5-11.1); PLATELET COUNT 334 K/MM3 (134-434); RBC 5.31 M/mm3 (4.00-5.60); RDW 13.4 % (11.9-15.9); WHITE BLOOD COUNT 17.8 K/mm3 (4.0-10.8)
[2020-07-25] MEDS ORDERED: ALPRAZolam 1 MG TABLET PO ONE (17:51)
[2020-07-25 19:01] LABS: PLATELET ESTIMATE ADEQUATE
[2020-07-25 19:02] LABS: LYMPH % 13.4 % (8-40); NEUT % 74.4 % (42.8-82.8)
[2020-07-25 19:03] LABS: EOS % 0.1 % (0-4.5)
[2020-07-26] MEDS: HYDROmorphone HCL/PF 1 MG/ML VIAL IVPB PRN ×2 (00:56→06:33)
[2020-07-26] MEDS: METOCLOPRAMIDE HCL INJECTION 10 MG/2 ML VIAL IVPUSH SCH ×2 (01:37→08:21)
[2020-07-26] MEDS: ONDANSETRON 4 MG/2 ML VIAL IVPUSH SCH ×3 (01:37→10:12)
[2020-07-26 06:15] VITALS: BP 152/77; PULSE 90; TEMP 98.3
[2020-07-26 08:03] LABS: HEMATOCRIT 42.7 % (35.4-49); HEMOGLOBIN 14.9 GM/dl (11.7-16.9); MCH 29.3 pg (25.7-33.7); MCHC 34.9 g/dl (32.0-35.9); MEAN CELL VOLUME 83.8 fl (80-96); MEAN PLT VOLUME 9.1 fl (7.5-11.1); PLATELET COUNT 342 K/MM3 (134-434); RBC 5.09 M/mm3 (4.00-5.60); RDW 13.2 % (11.9-15.9); WHITE BLOOD COUNT 15.6 K/mm3 (4.0-10.8)
[2020-07-26 08:21] LABS: ALBUMIN 4.1 g/dl (3.4-5.0); BILIRUBIN,TOTAL 0.8 mg/dl (0.2-1); TOT PROT 7.5 g/dl (6.4-8.2)
[2020-07-26] MEDS: ENOXAPARIN NA (PORCINE) 40 MG/0.4 ML DISP.SYRIN SQ SCH (10:12)
[2020-07-26] MEDS: FAMOTIDINE 20 MG/50 ML IVPB 20 MG/50 ML MG IVPB SCH (10:12)
== END 2020-07-26 13:30 | disposition home or self-care (01) | DRG 621 ==
LOC: FM/S 07-24 09:34
PROVIDERS: ADMIT Surgery; ATTEND Surgery
PROC: 0DB64Z3 Excision of Stomach, Percutaneous Endoscopic Approach, Vertical (ICD-10-PCS; principal; 2020-07-24 12:14)
PROC: 0FB24ZX Excision of Left Lobe Liver, Percutaneous Endoscopic Approach, Diagnostic (ICD-10-PCS; 2020-07-24 12:14)
DX: E66.01 Morbid (severe) obesity due to excess calories (principal); Z68.37 Body mass index [BMI] 37.0-37.9, adult; R16.0 Hepatomegaly, not elsewhere classified; F41.9 Anxiety disorder, unspecified; D72.829 Elevated white blood cell count, unspecified
CPT/HCPCS: 36415; 71045-TC-FY; 74240-TC-FY; 80053; 81003; 81015; 85025; 85027; 87040; 87086; 88305-TC; 94660; 94760; C9803; J0131; U0003; U0005

== ENCOUNTER 2022-03-27 04:00 | Day surgery (SDC) | payer OTHER ==
[2022-03-22 11:53] VITALS: BMI 26.9
[2022-03-27] MEDS ORDERED: DEXAMETHASONE SOD PHOSPHATE 4 MG/1 ML VIAL ONE (07:12)
[2022-03-27] MEDS ORDERED: ONDANSETRON 4 MG/2 ML VIAL ONE (07:12)
[2022-03-27] MEDS ORDERED: ceFAZolin SODIUM 1 GM VIAL ONE (07:12)
[2022-03-27] MEDS ORDERED: SUCCINYLCHOLINE CHLORIDE 200 MG/10 ML SYRINGE ONE (07:12)
[2022-03-27] MEDS ORDERED: PROPOFOL 40 ML ONE (07:12)
[2022-03-27] MEDS ORDERED: MIDAZOLAM HCL 2 MG/2 ML SINGLE DOSE VIAL ONE (07:12)
[2022-03-27] MEDS ORDERED: SEVOFLURANE 250 ML BTL ONE (07:13)
[2022-03-27] MEDS ORDERED: COCAINE HCL 4% TOPICAL SOLUTION 4 ML BOTTLE TP ONE ×2 (07:21→08:21)
[2022-03-27] MEDS ORDERED: ACETAMINOPHEN INJECTION 100 ML IVPB ONE (07:23)
[2022-03-27] MEDS ORDERED: DEXMEDETOMIDINE HCL 200 MCG/2 ML IVPB ONE (07:23)
[2022-03-27] MEDS ORDERED: oxyCODONE HCL 5 MG TABLET PO PRN ×2 (07:35)
[2022-03-27] MEDS ORDERED: ACETAMINOPHEN 325 MG TABLET (FP) PO PRN (07:35)
[2022-03-27] MEDS ORDERED: ONDANSETRON 4 MG/2 ML VIAL IVPUSH PRN (07:35)
[2022-03-27] MEDS ORDERED: LACTATED RINGERS SOLUTION 1,000 ML IV SCH (07:45)
[2022-03-27] MEDS ORDERED: ceFAZolin SODIUM 1 GM VIAL IVPB ONE (08:17)
[2022-03-27 12:16] VITALS: RESP 18
[2022-03-27 13:30] VITALS: BP 106/62; PULSE 75; TEMP 97.8
== END 2022-03-27 13:15 | disposition home or self-care (01) ==
LOC: JASU-SURG 04:00
PROVIDERS: ATTEND Otolaryngology
CPT/HCPCS: 88304-TC; 88311-TC; 94760